=== PATIENT | female | born 1945 | race Caucasian/White ===

== ENCOUNTER 2024-10-14 18:28 | Emergency (ER) | payer MEDICARE, SELFPAY ==
[2024-10-14 18:37] VITALS: BP 162/76
[2024-10-14 18:47] VITALS: BMI 29.9
[2024-10-14 19:00] VITALS: BP 172/66
[2024-10-14 19:08] LABS: % Basophils 0.6 % (0-2); % Eosinophils 2.9 % (0-6); % Immature Granulocytes 0.4 % (0-0.5); % Lymphocytes 35.2 % (20.5-51.1); % Monocytes 7.2 % (1.7-9.3); % Neutrophils 53.7 % (42.2-75.2); Absolute Eosinophils 0.2 10^3/uL (0-0.7); Absolute Lymphocytes 2.6 10^3/uL (1.2-3.4); Absolute Monocytes 0.5 10^3/uL (0.1-0.6); Absolute Neutrophils 3.9 10^3/uL (1.4-6.5); Hematocrit 37.7 % (37.0-47.0); Hemoglobin 12.7 g/dL (12.0-16.0); Mean Corp Hgb Conc. 33.7 g/dL (33.0-37.0); Mean Corpuscular Hgb 30.2 pg (27.0-31.0); Mean Corpuscular Volume 89.5 fL (81.0-99.0); Mean Platelet Volume 9.1 fL (7.4-10.4); Nucleated Red Blood Cells % 0 %; Platelet Count 415 10^3/uL (130-400); Red Blood Cell Count 4.21 10^6/uL (4.20-5.40); Red Cell Dist. Width 13.6 % (11.5-14.5); White Blood Cell Count 7.2 10^3/uL (4.8-10.8)
[2024-10-14 19:25] LABS: ALT (SGPT) 30 U/L (0-35); AST (SGOT) 25 U/L (14-36); Alkaline Phosphatase 63 U/L (38-126); Blood Urea Nitrogen 6 mg/dl (7-17); Calcium 9.3 mg/dl (8.4-10.2); Carbon Dioxide 26 mmol/L (22-30); Chloride 103 mmol/L (98-107); Estimated Creatinine Clearance 82 ml/min; Glucose 143 mg/dl (70-99); Potassium 4.1 mmol/L (3.5-5.1); Sodium 137 mmol/L (135-145); Total Bilirubin 0.3 mg/dl (0.2-1.3); Total Protein 6.4 g/dl (6.3-8.2); eGFR > 60.00
[2024-10-14 19:32] LABS: Troponin I < 0.012 ng/ml
--- NOTE | 2024-10-14 19:40 | ED.GENMED ---
History of Present Illness
General
Chief Complaint: Fainting/Passed Out
Source: patient
Exam Limitations: none
Time Seen by Provider: 10/14/24 19:01
Nursing documentation reviewed up to this point in time: agreed with
History of Present Illness
History of Present Illness:
79-year-old female hypertension diabetic who was running to the restroom to urinate apparently passed out yelled out to family, brought to the ER here she is without complaints states she does urinate frequently which is not a new issue no chest
pain no shortness of breath no abdominal pain no slurred speech no fevers does not believe she struck her head
Past History
Past History
ED Past Medical History: HTN and NIDDM; Negative Arrthythmia
Social History
Tobacco: Non-smoker
Alcohol: None
Drug: None
Living: alone
Employment: Retired
Review of Systems
Review of Systems
All Other Systems: Not applicable
Constitutional: Denies fever or fatigue
Respiratory: Reports no symptoms; Denies cough or trouble breathing
Cardiac: Reports syncope
ABD/GI: Reports no symptoms; Denies abdominal pain, vomiting or diarrhea
: Reports frequency
Musculoskeletal: Reports no symptoms
Skin: Reports no symptoms
Phy Exam
Physical Exam
Physical Exam:
Physical Exam
General: no apparent distress, not acutely ill
Neck: No tongue bite
Heart: Regular
Lungs: no acute respiratory distress. clear bilaterally
Abdomen: Nontender
Neuro: alert and oriented. no focal neurological deficits
Skin: no rash
Psychiatric: well kept. interactive and cooperative
Extremities: no edema.
Course
Orders/Labs/Results
Orders:
Orders
10/14/24 18:36
EKG [Electrocardiogram (*1)] Urgent
Reason for Study: Syncope
EKG- Treatment ONCE
10/14/24 18:58
CMP [Comprehensive Metabolic Panel] Urgent
Complete Blood Count/With Diff Urgent
Troponin I Urgent
10/14/24 20:37
Urinalysis Reflex To Culture Urgent
Date Specimen was Collected: 10/14/24
Time Specimen was Collected: 20:36
Urine Microscopic Reflex Cult Urgent
Urine Culture Urgent
KAYLA Source: U
Specimen Description:
Date Specimen was Collected: 10/14/24
Time Specimen was Collected: 20:36
10/14/24 21:16
CefTRIAXone [Rocephin] 1,000 mg IV NOW STA
Abnormal Lab Results
10/14/24 10/14/24
18:58 20:37
Plt Count 415 H 10^3/uL
(130-400)
BUN 6 L mg/dl
(7-17)
Creatinine 0.5 L mg/dL
(0.6-1.0)
Glucose 143 H mg/dl
(70-99)
Urine Ketones 1+ A
(Negative)
Leukocyte Esterase Rfl 2+ A
(Negative)
Urine WBC (Reflex) 11-15 A /HPF
(0-5)
Urine Bacteria (Reflex) Few A
(Negative)
Urine Albumin (Reflex) 1+ A
(Neg - Trace)
10/14/24 18:58
10/14/24 18:58
Vital Signs
Initial and Last Documented VS:
Initial Vital Signs
Temp Pulse Resp BP Pulse Ox
97.5 F 67 20 162/76 100
10/14/24 18:37 10/14/24 18:37 10/14/24 18:37 10/14/24 18:37 10/14/24 18:37
Last Documented Vital Signs
Temp Pulse Resp BP Pulse Ox
97.5 F 70 28 172/66 97
10/14/24 18:37 10/14/24 19:30 10/14/24 19:30 10/14/24 19:00 10/14/24 19:30
MDM/Problems Addressed
Differential Diagnosis Includes:
Micturition syncope arrhythmia dehydration UTI low clinical suspicion for intracerebral hemorrhage or intra-abdominal pathology
MDM/Problems Addressed:
Syncope
Chronic conditions affecting care: DM and HTN
Acute Exacerbation and/or Progression of Chronic Illness: DM and HTN
*Pulse Oximetry
Patient hypoxic: no
*EKG
Interpreted by ED Provider?: Yes
Interpretation: normal
Comparison EKG: no comparison EKG present
Heart Rate: 78
Rate: normal
Rhythm: sinus
Ischemia: no ischemia
*Ball Rolling Machine Operator Interpretation
Rate: normal
Interpretation: normal
Heart Rate: 78
Rhythm: sinus
*Critical Care Note
Total Time (30-74mins, 75-104mins- exclusive of procedures): Not Applicable
Update Note
Update Note:
Update patient looks well without complaints
Normal sinus rhythm here, does have urinary frequency will check a UA, keep her on shelter monitor
Update urinalysis noted culture pending will start on antibiotics
ED Attending Note
-
Portions of this chart may have been created with voice recognition software.� Occasional wrong word or��sound alike� substitutions may have occurred due to the inherent limitations of voice recognition software.
Discharge Plan
Departure
Patient Disposition: Home (Routine Discharge)
Date of Disposition: 10/14/24
Time of Disposition: 21:18
Patient with high blood pressure during this ER visit?: No
Condition: Good
Discharge Problem:
Syncope, Acute UTI
Instructions: Urinary tract infections in adults, Syncope (Fainting) (DC)
Prescriptions:
New
cephalexin 500 mg capsule
500 mg PO Q6H 7 Days Qty: 28 0RF
Referrals:
Stephy Angel DO [Family Provider] - Next open appointment
Activity Restrictions/Additional Instructions:
Drink plenty of fluids antibiotics as prescribed follow-up with your family doctor
Interventions
Interventions:
*Risk Screen - Suicide Last Done: 10/14/24 18:37
*General Assessment Last Done: 10/14/24 18:37
*Neglect/Abuse Screening Last Done: 10/14/24 18:37
*ED- Fall Risk Assessment Last Done: 10/14/24 18:56
*ED COVID-19 Vaccine History Last Done: 10/14/24 18:37
ED- Cardiac Assessment Last Done: 10/14/24 18:47
ED- Neurological Assessment Last Done: 10/14/24 18:47
Discharge Date and Time
Print Language: ITALIAN
[2024-10-14 20:00] VITALS: BP 152/72
[2024-10-14 20:45] LABS: Urine Albumin 1+ (Neg - Trace); Urine Bilirubin Negative (Negative); Urine Character Clear (Clear); Urine Color Yellow; Urine Glucose Negative (Negative); Urine Ketone 1+ (Negative); Urine Leukocyte 2+ (Negative); Urine Nitrite Negative (Negative); Urine Occult Blood Negative (Negative); Urine Urobilinogen Negative (Neg - 1+)
[2024-10-14 20:53] LABS: Urine Bacteria Few (Negative); Urine Red Blood Cell 0-2 /HPF (0-2); Urine Squamous Cell 0-2 /LPF (Few)
[2024-10-14] MEDS: ROCEPHIN 1000 MG IV (21:38)
[2024-10-14 22:00] VITALS: BP 118/94
== END 2024-10-14 22:15 | disposition home or self-care (01) ==
LOC: EMR 18:28
PROVIDERS: EMERGENCY PHYSICIAN Emergency Medicine; FAMILY PHYSICIAN Family Medicine
DX: R55 Syncope and collapse (principal); N39.0 Urinary tract infection, site not specified; I10 Essential (primary) hypertension; E11.9 Type 2 diabetes mellitus without complications; I49.1 Atrial premature depolarization
CPT/HCPCS: 99283; 80053; 81003; 81015; 84484; 85025; 87086; 93005